=== PATIENT | female | born 1995 | race Native Hawaiian/Other Pacific Islander ===

== ENCOUNTER 2020-04-16 20:58 | Emergency (ER) | payer BC ==
[~2020-04-16] VITALS: Ht 165.1 cm; Wt 70.3 kg
[2020-04-16] MEDS ORDERED: AYGESTIN5 MG PO (22:15)
[2020-04-16] MEDS ORDERED: SERT50TA PO (22:16)
[2020-04-16 23:12] LABS: PLATELET COUNT 327 K/uL (152-353)
[2020-04-16 23:17] LABS: POTASSIUM 3.8 mmol/L (3.6-5.2)
[2020-04-17 00:50] VITALS: BP 121/64; TEMP 99.8
== END 2020-04-17 00:50 | disposition home or self-care (01) ==
LOC: ED 20:58
PROVIDERS: Family Medicine
DX: J06.9 Acute upper respiratory infection, unspecified (principal); R11.2 Nausea with vomiting, unspecified; R51 Headache; Z20.828 Contact with and (suspected) exposure to other viral communicable diseases
CPT/HCPCS: 36415; 80053; 81000; 82728; 83605; 85027; 85379; 87040; 87088; 87502; 87635; 87651; 96360; 96375; 99284; J2405; U0003